=== PATIENT | female | born 1985 | race Caucasian/White ===

== ENCOUNTER 2017-12-04 10:21 | Emergency (ER) | payer OTHER ==
[~2017-12-04] VITALS: Ht 162.6 cm; Wt 115.7 kg
[2017-12-04 10:21] VITALS: BP 124/66
[2017-12-04] MEDS ORDERED: KETOROLAC 60 MG/2 ML VIAL IM ONE (10:35)
[2017-12-04 10:56] VITALS: BP 124/66
== END 2017-12-04 10:56 | disposition home or self-care (01) ==
LOC: MED 10:21
DX: R51 Headache (principal)
CPT/HCPCS: 96372; 99283; J1885

== ENCOUNTER 2018-01-22 22:02 | Emergency (ER) | payer OTHER ==
[~2018-01-22] VITALS: Ht 162.6 cm; Wt 113.4 kg
[2018-01-22 22:17] VITALS: BP 124/71
[2018-01-23 00:15] VITALS: BP 118/74
== END 2018-01-23 00:15 | disposition home or self-care (01) ==
LOC: MED 22:02
DX: R51 Headache (principal); R42 Dizziness and giddiness
CPT/HCPCS: 81002; 81025; 99282

== ENCOUNTER 2018-02-04 22:45 | Emergency (ER) | payer OTHER ==
[~2018-02-04] VITALS: Ht 162.6 cm; Wt 113.4 kg
[2018-02-04 23:00] VITALS: BP 123/70
--- NOTE | 2018-02-04 23:04 | NUR ---
PT AMBULATED TO ROOM 12 WITH VSS.
--- NOTE | 2018-02-04 23:10 | NUR ---
PATIENT PRESENTS TO ED WITH HEADACHE AND LEFT NECK PAIN X1 DAY. PATIENT STATES PAIN LEVEL 4/10 AT THIS TIME. PATIENT STATES DULL SENSATION FOR PAIN. PATIENT STATES PRESSURE BEHIND HER LEFT EYE BUT DENIES BLURRED VISION OR LOSS OF VISION AT THIS TIME. PATIENT IS A&OX4, PERRLA. ER MD MADE AWARE OF PATIENT STATUS WILL CONTINUE TO MONITOR.
--- NOTE | 2018-02-04 23:47 | NUR ---
Patient discharged with v/s stable. Written and verbal after care instructions given and explained. Patient alert, oriented and verbalized understanding of instructions. Ambulatory with steady gait. All questions addressed prior to discharge. ID band removed. Patient advised to follow up with PMD. Rx of FLEXERIL, IBUPROFEN given. Patient educated on indication of medication including possible reaction and side effects. Opportunity to ask questions provided and answered.
[2018-02-04 23:49] VITALS: BP 123/70
== END 2018-02-04 23:49 | disposition home or self-care (01) ==
LOC: MED 22:45
DX: G44.209 Tension-type headache, unspecified, not intractable (principal); M54.2 Cervicalgia
CPT/HCPCS: 99283

== ENCOUNTER 2018-02-15 04:02 | Emergency (ER) | payer OTHER ==
[~2018-02-15] VITALS: Ht 162.6 cm; Wt 114.0 kg
[2018-02-15 04:02] VITALS: BP 111/71
--- NOTE | 2018-02-15 04:08 | NUR ---
PATIENT AMBULATED TO ER BED 4.
--- NOTE | 2018-02-15 04:17 | NUR ---
32/F CAME IN ED, C/O HEALED PUNCTURE WOUND ON DISTAL OF INNER FOREARM, X24 HRS. 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 HEALED PUNCTURE WOUND NOTED WITH APPROXIMATELY 1 IN X 1 IN BRUISING AND SWELLING. SKIN INTACT. PT REPORTS 6/10 PAIN AT THIS TIME. PT REPORTS TAKING IBUPROFEN WITH LITTLE RELIEF, LAST DOSE X6 HRS AGO. PT DENIES MED HX, RX. NKA. ER MADE AWARE
[2018-02-15] MEDS ORDERED: BACITRACIN OINT 500 UNITS/GM PKT TP ONE (04:45)
--- NOTE | 2018-02-15 04:50 | NUR ---
ER MD AT BEDSIDE TO PERFORM US
[2018-02-15 05:13] VITALS: BP 110/70
== END 2018-02-15 05:13 | disposition home or self-care (01) ==
LOC: MED 04:02
DX: S51.831A Puncture wound without foreign body of right forearm, initial encounter (principal); X58.XXXA Exposure to other specified factors, initial encounter; Y93.89 Activity, other specified; Y92.89 Other specified places as the place of occurrence of the external cause; Y99.8 Other external cause status
CPT/HCPCS: 90471; 90715; 99284

== ENCOUNTER 2018-08-01 11:58 | Emergency (ER) | payer OTHER ==
[~2018-08-01] VITALS: Ht 165.1 cm; Wt 123.6 kg
[2018-08-01 12:21] VITALS: BP 109/63
--- NOTE | 2018-08-01 12:29 | NUR ---
PT AMBULATES TO BED 2
--- NOTE | 2018-08-01 12:34 | NUR ---
pt ambulates to restroom at this time to provide urine sample.
--- NOTE | 2018-08-01 12:36 | NUR ---
32 yo f bib self w/ c/o intermittent headaches. 2x this week, 3x last week. tylenol improves the pain, which is 4/10 at this time. last dose 11am today. reports nausea, denies vomiting. denies injury. aaox4, gcs 15. perrla. reports drinking plenty of fluids.
[2018-08-01] MEDS ORDERED: KETOROLAC 60 MG/2 ML VIAL IM ONE (12:40)
--- NOTE | 2018-08-01 12:57 | NUR ---
PATIENT BACK FROM CT SCAN.
[2018-08-01 14:09] VITALS: BP 109/63
--- NOTE | 2018-08-01 14:09 | NUR ---
Patient discharged with v/s stable. Written and verbal after care instructions given and explained. Patient alert, oriented and verbalized understanding of instructions. Ambulatory with steady gait. All questions addressed prior to discharge. ID band removed. Patient advised to follow up with PMD. Rx of TRAMADOL, MOTRIN, ZOFRAN given. Patient educated on indication of medication including possible reaction and side effects. Opportunity to ask questions provided and answered.
== END 2018-08-01 14:09 | disposition home or self-care (01) ==
LOC: MED 11:58
DX: R51 Headache (principal); H53.149 Visual discomfort, unspecified; R11.0 Nausea
CPT/HCPCS: 70450; 81025; 96372; 99284; J1885

== ENCOUNTER 2018-09-14 23:38 | Emergency (ER) | payer OTHER ==
[~2018-09-14] VITALS: Ht 162.6 cm; Wt 122.5 kg
[2018-09-14 23:51] VITALS: BP 109/76
--- NOTE | 2018-09-14 23:51 | NUR ---
TO BED# 11 AMBULATORY, REPORT GIVEN TO ORLANDO CISNEROS
--- NOTE | 2018-09-15 00:10 | NUR ---
32/F PRESENTS TO ED, C/O HEADACHE X1 DAY. REPORTS NAUSEA, DENIES VOMITING. DENIES LIGHT/SOUND SENSITIVITY. AOX4, GCS 15, RR EVEN AND UNLABORED. HX MIGRAINE RX TRAMADOL AND ZOFRAN WITH LITTLE RELIEF
[2018-09-15] MEDS ORDERED: KETOROLAC 60 MG/2 ML VIAL IM ONE (01:00)
--- NOTE | 2018-09-15 01:25 | NUR ---
PT LAYING IN BED, RR EVEN AND UNLABORED. VSS, REPORTS IMPROVEMENT IN HEADACHE, 4/10 AT THIS TIME, DENIES NAUSEA. ALL NEEDS MET.
[2018-09-15 01:31] VITALS: BP 106/70
--- NOTE | 2018-09-15 01:31 | NUR ---
Patient discharged with v/s stable. Written and verbal after care instructions given and explained. Patient alert, oriented and verbalized understanding of instructions. Ambulatory with steady gait. All questions addressed prior to discharge. ID band removed. Patient advised to follow up with PMD. Rx of FIORICET given. Patient educated on indication of medication including possible reaction and side effects. Opportunity to ask questions provided and answered.
== END 2018-09-15 01:31 | disposition home or self-care (01) ==
LOC: MED 23:38
DX: G43.909 Migraine, unspecified, not intractable, without status migrainosus (principal); Z98.890 Other specified postprocedural states
CPT/HCPCS: 81025; 96372; 99283; J1885

== ENCOUNTER 2018-10-11 07:10 | Emergency (ER) | payer OTHER ==
[~2018-10-11] VITALS: Ht 162.6 cm; Wt 122.5 kg
[2018-10-11 07:25] VITALS: BP 115/75
--- NOTE | 2018-10-11 07:46 | NUR ---
PT BIB SELF C/O HEADACHE X1 DAY. PT REPORTS CONSTANT NON-RADIATING PRESSURE PAIN IN FRONT OF HEAD AT 6/10. PT TREATED WITH TRAMADOL WITH NO RELIEF. PT AAOX4, COOPERATIVE, SPEECH CLEAR, FACIAL SYMMETRY INTACT, PERRLA, BUE STRONG/EQUAL, AND GAIT STEADY. PT REPORTS NAUSEA. DENIES VOMITING, FEVER, OR DIARRHEA. VSS. ER MD TO SEE PT. MEDHX:DENEIS RX:TYLENOL, TRAMADOL
[2018-10-11] MEDS ORDERED: KETOROLAC 60 MG/2 ML VIAL IM ONE (08:10)
[2018-10-11] MEDS ORDERED: METOCLOPRAMIDE 10 MG/2 ML INJ VIAL IM ONE (08:10)
[2018-10-11 08:40] LABS: BARBITURATE, URINE POS. ng/ml (NEG <=200); BENZODIAZEPINE, URINE NEG. ng/mL (NEG <=200); CANNABINOID, URINE NEG. ng/mL (NEG <=50); COCAINE, URINE NEG. ng/mL (NEG <=300); OPIATE, URINE NEG. ng/mL (NEG <=2000); PHENCYCLIDINE SCREEN,URINE NEG. ng/mL (NEG <=25)
[2018-10-11 09:10] VITALS: BP 115/75
== END 2018-10-11 09:10 | disposition home or self-care (01) ==
LOC: MED 07:10
DX: G43.909 Migraine, unspecified, not intractable, without status migrainosus (principal); E66.01 Morbid (severe) obesity due to excess calories; Z68.42 Body mass index [BMI] 45.0-49.9, adult
CPT/HCPCS: 80305; 81002; 81025; 96372; 99283; J1885; J2765

== ENCOUNTER 2018-12-09 18:38 | Emergency (ER) | payer OTHER ==
[~2018-12-09] VITALS: Ht 162.6 cm; Wt 124.7 kg
[2018-12-09 18:54] VITALS: BP 121/60
[2018-12-09 19:07] VITALS: BP 123/82
--- NOTE | 2018-12-09 19:07 | NUR ---
33 Y/O F PRESENTED TO ED WITH C/O MIGRAINE X1 DAY. +NAUSEA/VOMITTING. TEMPORAL HEADACHE. 12/31 PIAN, POUNDING. DENIES VISION CHANGES OR LIGTH SENSITIVITY. AAOX4. ERMD NOTIFIED. WILL CONTINUE TO MONITOR.
[2018-12-09] MEDS ORDERED: NACL 0.9% 1,000 ML IV ONE (19:16)
[2018-12-09] MEDS ORDERED: METOCLOPRAMIDE 10 MG/2 ML INJ VIAL IVP ONE (19:20)
[2018-12-09] MEDS ORDERED: diphenhydrAMINE 50 MG/ML VIAL IVP ONE (19:20)
--- NOTE | 2018-12-09 21:00 | NUR ---
Patient discharged with v/s stable. Written and verbal after care instructions given and explained. Patient alert, oriented and verbalized understanding of instructions. Ambulatory with steady gait. All questions addressed prior to discharge. ID band removed. Patient advised to follow up with PMD. Rx of Motrin and [place] given. Patient educated on indication of medication including possible reaction and side effects. Opportunity to ask questions provided and answered.
== END 2018-12-09 21:00 | disposition home or self-care (01) ==
LOC: MED 18:38
DX: R51 Headache (principal); R11.0 Nausea; Z98.890 Other specified postprocedural states
CPT/HCPCS: 81002; 81025; 96374; 96375; 99283; J1200; J2765; J7030

== ENCOUNTER 2018-12-24 19:21 | Emergency (ER) | payer OTHER ==
[~2018-12-24] VITALS: Ht 162.6 cm; Wt 124.7 kg
[2018-12-24 19:27] VITALS: BP 105/68
--- NOTE | 2018-12-24 19:27 | NUR ---
TO BED # 08 AMBULATORY
--- NOTE | 2018-12-24 19:35 | NUR ---
PT BIB SELF WITH C/O INCREASED HEART RATE. STATES TO HAVE SLIGHT PRESSURE AT THE MID REGION OF THE CHEST. DENEIS ANY SHARP PAIN. NO SOB, NAUSEA OR VOMITING. NO PMH, NKA. PUT THE PT ON BEDSIDE MONITOR. ER MD TO SEE THE PATIENT. WILL CONTINUE TO MONITOR PT.
[2018-12-24 20:58] VITALS: BP 105/68
--- NOTE | 2018-12-24 20:58 | NUR ---
Patient discharged with v/s stable. Written and verbal after care instructions given and explained. Patient alert, oriented and verbalized understanding of instructions. Ambulatory with steady gait. All questions addressed prior to discharge. ID band removed. Patient advised to follow up with PMD. Opportunity to ask questions provided and answered.
== END 2018-12-24 20:58 | disposition home or self-care (01) ==
LOC: MED 19:21
DX: F41.9 Anxiety disorder, unspecified (principal); Z98.890 Other specified postprocedural states
CPT/HCPCS: 93005; 99283

== ENCOUNTER 2019-01-07 09:37 | Emergency (ER) | payer OTHER ==
[~2019-01-07] VITALS: Ht 162.6 cm; Wt 125.7 kg
[2019-01-07 09:43] VITALS: BP 123/71
--- NOTE | 2019-01-07 09:48 | NUR ---
Patient ambulated to bed 12. RN evaluating patient at bedside.
--- NOTE | 2019-01-07 09:59 | NUR ---
33/F C/O NAUSEA, HEADACHE W/ SENSITIVITY TO LIGHT AND NOISE X 2 DAYS. MEDHX:MIGRANE. DENIES V/D; SKIN IS PINK/WARM/DRY; AAOX4 WITH EVEN AND STEADY GAIT; LUNGS CLEAR BL; HR EVEN AND REGULAR; PT DENIES ANY FEVER, CP, SOB, OR COUGH AT THIS TIME; PATIENT STATES PAIN OF 6/10 AT THIS TIME. PATIENT POSITIONED FOR COMFORT; HOB ELEVATED; BEDRAILS UP X1; BED DOWN. ER MD MADE AWARE OF PT STATUS.
[2019-01-07] MEDS ORDERED: LORazepam 1 MG TAB PO ONE (10:30)
[2019-01-07] MEDS ORDERED: METOCLOPRAMIDE 10 MG/2 ML INJ VIAL IM SCH (10:30)
[2019-01-07] MEDS ORDERED: KETOROLAC 60 MG/2 ML VIAL IM SCH (11:00)
[2019-01-07 11:25] LABS: BARBITURATE, URINE POS. ng/ml (NEG <=200); BENZODIAZEPINE, URINE NEG. ng/mL (NEG <=200); CANNABINOID, URINE NEG. ng/mL (NEG <=50); COCAINE, URINE NEG. ng/mL (NEG <=300); OPIATE, URINE NEG. ng/mL (NEG <=2000); PHENCYCLIDINE SCREEN,URINE NEG. ng/mL (NEG <=25)
[2019-01-07 11:30] LABS: APPEARANCE,URINE HAZY (CLEAR); BILIRUBIN,URINE NEGATIVE (NEGATIVE); BLOOD, URINE TRACE-I (NEGATIVE); COLOR,URINE YELLOW (YELLOW); LEUKOCYTE ESTERASE ,URINE 1+ (NEGATIVE); NITRITE, URINE NEGATIVE (NEGATIVE); UGLUCOSE NEGATIVE (NEGATIVE)
--- NOTE | 2019-01-07 11:55 | NUR ---
Patient returned from CT scan. RN re-evaluating patient at bedside.
[2019-01-07 12:19] LABS: RBC,URINE NONE SEEN /HPF (0-5); WBC,URINE 80-100 /HPF (0-5)
[2019-01-07 13:23] VITALS: BP 102/60
--- NOTE | 2019-01-07 13:23 | NUR ---
Patient discharged with v/s stable. Written and verbal after care instructions given and explained. Patient alert, oriented and verbalized understanding of instructions. Carried with steady gait. All questions addressed prior to discharge. ID band removed. Patient advised to follow up with PMD. Rx of Reglan given. Patient educated on indication of medication including possible reaction and side effects. Opportunity to ask questions provided and answered.
== END 2019-01-07 13:23 | disposition home or self-care (01) ==
LOC: MED 09:37
DX: G43.909 Migraine, unspecified, not intractable, without status migrainosus (principal); D32.9 Benign neoplasm of meninges, unspecified; M62.838 Other muscle spasm
CPT/HCPCS: 70450; 72125; 80305; 81001; 81025; 87086; 87186; 96372; 99284; J1885; J2765

== ENCOUNTER 2019-01-18 02:18 | Emergency (ER) | payer OTHER ==
[~2019-01-18] VITALS: Ht 162.6 cm; Wt 125.6 kg
[2019-01-18 02:30] VITALS: BP 126/89
--- NOTE | 2019-01-18 02:30 | NUR ---
TO BED # 06 AMBULATORY
--- NOTE | 2019-01-18 02:32 | NUR ---
33 YO FEMALE COMES TO ED FOR C/O TORRES X1 DAY. PT RECENTLY WAS @ [facility] FOR TORRES AND WAS DX WITH MENINGIOMA AND RX OF BUTALBITAL/TYLENOL/CAFFEINE AND REGLAN. PT STATES SHE FOLLOWED UP WITH PCP AND SENT TO NEUROLOGY SPECIALIST, APPT SETUP IN . PT STATES TORRES "8/10 PAIN TO R SIDE OF HEAD BEHIND EYE" DENIES NUMBNESS TINGLING. DENIES CP/SOB. DENIES N/VD. GURNEY LOCKED IN LOWEST POSITION. ERMD @ BEDSIDE HX: HEADACHES RX: REGLAN, BUTALBITAL/TYLENOL/CAFFEINE ALLERGIES: NONE LMP: 09/08 PT STATES SHE TAKES CONTROL THAT AFFECTS MENSTRUAL CYCLE
--- NOTE | 2019-01-18 02:36 | NUR ---
Dr. Phoenix examining patient.
[2019-01-18] MEDS ORDERED: SUMAtriptan 6 MG/0.5 ML VIAL SUBQ ONE (02:40)
[2019-01-18] MEDS ORDERED: KETOROLAC 60 MG/2 ML VIAL IM ONE (02:40)
--- NOTE | 2019-01-18 03:23 | NUR ---
PT HAS EYES CLOSED; AROUSABLE, REASSESSED PT; PAIN 0/10. ERMD MADE AWARE.
[2019-01-18 03:26] VITALS: BP 109/79
== END 2019-01-18 03:32 | disposition home or self-care (01) ==
LOC: MED 02:18
DX: R51 Headache (principal)
CPT/HCPCS: 96372; 99283; J1885; J3030

== ENCOUNTER 2019-01-21 18:43 | Emergency (ER) | payer OTHER ==
[~2019-01-21] VITALS: Ht 162.6 cm; Wt 122.9 kg
[2019-01-21 18:52] VITALS: BP 111/79
--- NOTE | 2019-01-21 18:54 | NUR ---
TO ED LOBBY WITH VSS. AWATING BED IN DEPT.
[2019-01-21] MEDS ORDERED: diphenhydrAMINE 50 MG/ML VIAL IVP ONE (19:25)
[2019-01-21] MEDS ORDERED: MORPHINE SULFATE 4 MG/ML SYR IVP ONE (19:25)
--- NOTE | 2019-01-21 19:25 | NUR ---
C/O HEADACHE 10/10 AND THROBBING X 1 DAY. PT REPORTS NAUSEA WELL, NO VOMITING. PT STATES SHE HAS A HISTORY OF MIGRAINES. PT DENIES VISION CHANGES, BUE/BLE STRENGTH EQUAL, PT SPEAKING FULL/CLEAR SENTENCES, AND ANSWERING QUESTIONS APPROPRIATELY.
--- NOTE | 2019-01-21 19:29 | NUR ---
DR GUSTAFSON AT BEDSIDE
--- NOTE | 2019-01-21 19:32 | NUR ---
PT REFUSED MORPHINE & BENADRYL. sHE WOULD LIKE TORADOL AND IMITREX INSTEAD. DR. GUSTAFSON AWARE
[2019-01-21] MEDS ORDERED: KETOROLAC 30 MG/ML VIAL IM ONE (19:35)
[2019-01-21] MEDS ORDERED: SUMAtriptan 25 MG TAB PO ONE (19:35)
[2019-01-21 20:23] VITALS: BP 118/81
--- NOTE | 2019-01-21 20:23 | NUR ---
Patient discharged with v/s stable. Written and verbal after care instructions given and explained. Patient alert, oriented and verbalized understanding of instructions. Ambulatory with steady gait. All questions addressed prior to discharge. ID band removed. Patient advised to follow up with PMD. Rx of IMITREX given. Patient educated on indication of medication including possible reaction and side effects. Opportunity to ask questions provided and answered.
== END 2019-01-21 20:23 | disposition home or self-care (01) ==
LOC: MED 18:43
DX: G43.909 Migraine, unspecified, not intractable, without status migrainosus (principal)
CPT/HCPCS: 96372; 99283; J1885; J1200; J2270

== ENCOUNTER 2019-02-06 19:06 | Emergency (ER) | payer OTHER ==
[~2019-02-06] VITALS: Ht 162.6 cm; Wt 123.4 kg
[2019-02-06 19:14] VITALS: BP 114/70
[2019-02-06] MEDS ORDERED: KETOROLAC 60 MG/2 ML VIAL IM ONE (20:45)
[2019-02-06 21:11] VITALS: BP 111/76
== END 2019-02-06 21:11 | disposition home or self-care (01) ==
LOC: MED 19:06
DX: R51 Headache (principal)
CPT/HCPCS: 81025; 96372; 99283; J1885

== ENCOUNTER 2019-04-07 12:24 | Emergency (ER) | payer OTHER ==
[~2019-04-07] VITALS: Ht 167.6 cm; Wt 123.4 kg
[2019-04-07 12:29] VITALS: BP 113/71
--- NOTE | 2019-04-07 12:33 | NUR ---
PT TO BED 4 WITH STEADY GAIT
--- NOTE | 2019-04-07 12:40 | NUR ---
C/O HEADACHE 01/31 X YESTERDAY. SAW NEUROLOGIST FOR MRI, PENDING RESULTS. REQUESTING PAIN MEDICATIONS. PMH- MIGRAINES. RX- FIORICET. PATIENT POSITIONED FOR COMFORT; HOB ELEVATED; BEDRAILS UP X1; BED DOWN. ER MD MADE AWARE OF PT STATUS.
--- NOTE | 2019-04-07 12:45 | NUR ---
Patient being evaluated by DR RADFORD at bedside.
[2019-04-07] MEDS ORDERED: KETOROLAC 60 MG/2 ML VIAL IM ONE (12:50)
[2019-04-07] MEDS ORDERED: PROCHLORPERAZINE 10 MG/2 ML VIAL IM ONE (12:50)
[2019-04-07 14:31] VITALS: BP 118/68
--- NOTE | 2019-04-07 14:31 | NUR ---
Patient discharged with v/s stable. Written and verbal after care instructions given and explained. Patient alert, oriented and verbalized understanding of instructions. Ambulatory with steady gait. All questions addressed prior to discharge. ID band removed. Patient advised to follow up with PMD. Rx of COMPAZINE given. Patient educated on indication of medication including possible reaction and side effects. Opportunity to ask questions provided and answered.
== END 2019-04-07 14:31 | disposition home or self-care (01) ==
LOC: MED 12:24
DX: G43.909 Migraine, unspecified, not intractable, without status migrainosus (principal); D32.9 Benign neoplasm of meninges, unspecified
CPT/HCPCS: 96372; 99283; J0780; J1885

== ENCOUNTER 2019-04-16 19:07 | Emergency (ER) | payer OTHER ==
[~2019-04-16] VITALS: Ht 162.6 cm; Wt 123.4 kg
[2019-04-16 19:15] VITALS: BP 134/61
--- NOTE | 2019-04-16 19:18 | NUR ---
TO LOBBY AMBULATORY
--- NOTE | 2019-04-16 20:52 | NUR ---
33 Y/O F PRESENTS TO ED WITH C/O WEAKNESS X2 DAYS. AAOX4. +LIGHTHEADEDNESS. PT DENIES PAIN, SICK CONTACTS, VISUAL CHANGES, N/V/D, AND FEVER/CHILLS. WILL CONTINUE TO MONITOR
[2019-04-16 21:29] LABS: BASOPHILS # (AUTO) 0.1 K/uL (0.00-0.22); BASOPHILS % (AUTO) 0.7 % (0.0-2.0); EOSINOPHILS # (AUTO) 0.2 K/uL (0-0.4); HEMATOCRIT 41.7 % (36-48); HEMOGLOBIN 13.9 g/dL (12.0-16.0); LYMPHOCYTES # (AUTO) 3.1 K/uL (2.5-16.5); LYMPHOCYTES % (AUTO) 39.6 % (20.5-51.1); MEAN CORPUSCULAR HEMOGLOBIN 29 pg (27-31); MEAN CORPUSCULAR HGB CONC 33 g/dL (33-37); MEAN CORPUSCULAR VOLUME 87.4 fL (80-94); MONOCYTES # (AUTO) 0.5 K/uL (0.8-1.0); MONOCYTES % (AUTO) 6.2 % (1.7-9.3); NEUTROPHILS % (AUTO) 51.5 % (42.2-75.2); PLATELET COUNT (AUTO) 203 K/uL (140-450); RED BLOOD CELL COUNT(AUTO) 4.78 MIL/uL (4.20-5.40); RED CELL DISTRIBUTION WIDTH 14.2 % (11.6-13.7); WHITE BLOOD COUNT (AUTO) 7.8 K/uL (4.8-10.8)
[2019-04-16 21:45] LABS: ANION GAP 10.6 (8-16); CARBON DIOXIDE 26.4 mmol/L (21-32); CREATININE 0.6 mg/dL (0.6-1.3)
[2019-04-16 21:50] LABS: ALBUMIN 3.5 g/dL (3.4-5.0); TOTAL BILIRUBIN 0.2 mg/dL (0.0-1.0)
--- NOTE | 2019-04-16 22:00 | NUR ---
PA SAVAGE WITH PT
[2019-04-16 22:10] VITALS: BP 122/71
--- NOTE | 2019-04-16 22:10 | NUR ---
Patient discharged with v/s stable. Written and verbal after care instructions given and explained to parent/guardian. Parent/Guardian verbalized understanding. Ambulatory with steady gait. All questions addressed prior to discharge. Advised to follow up with PMD.
== END 2019-04-16 22:10 | disposition home or self-care (01) ==
LOC: MED 19:07
DX: R53.83 Other fatigue (principal); F41.9 Anxiety disorder, unspecified; Z98.890 Other specified postprocedural states
CPT/HCPCS: 36415; 80053; 81002; 81025; 85025; 93005; 99284

== ENCOUNTER 2019-04-23 12:42 | Emergency (ER) | payer OTHER ==
[~2019-04-23] VITALS: Ht 162.6 cm; Wt 122.0 kg
[2019-04-23 12:50] VITALS: BP 123/83
--- NOTE | 2019-04-23 12:55 | NUR ---
PT TO ER LOBBY. PT ALERT AND AWAKE. VSS
--- NOTE | 2019-04-23 13:14 | NUR ---
PT GIVEN HOSPITAL PHONE TO CALL FAMILY MEMBER
--- NOTE | 2019-04-23 13:40 | NUR ---
PT TAKEN TO BED 12.
--- NOTE | 2019-04-23 13:48 | NUR ---
33/F C/O CONTINUOUS HEADACHE X YESTERDAY. DENIES INJURY. FOLLOW UP WITH NEUROLOGIST ON April, BUT STATES PAIN IS UNBEARABLE. MRI BRAIN WAS DONE OUTPATIENT BUT NO RESULTS YET CALLED TO PT. PAIN IS AT RT TEMPORAL REGION NOW BUT IT TRAVELS TO DIFFERENT AREAS. DENIES DIZZINESS, VISION CHANGES, VOMITING. STATES MILD NAUSEA AND WEAKNESS. HAND CRUDE OIL DRIVER STRENGTH STRONG, EQUAL. FULL CLEAR SPEECH. PERRLA. HX- HEADACHES, LT EYE [place] RX-FIORICET
--- NOTE | 2019-04-23 13:52 | NUR ---
STATES STRESS A TRIGGER OF HEADACHE. STATES MULTIPLE STRESSFUL THINGS HAPPENING YESTERDAY. GCS 15
[2019-04-23] MEDS ORDERED: KETOROLAC 30 MG/ML VIAL IM ONE (14:15)
--- NOTE | 2019-04-23 15:04 | NUR ---
Patient discharged with v/s stable. Written and verbal after care instructions given and explained. Patient verbalized understanding. Ambulatory with steady gait. All questions addressed prior to discharge. Advised to follow up with PMD.
[2019-04-23 15:06] VITALS: BP 110/68
== END 2019-04-23 15:04 | disposition home or self-care (01) ==
LOC: MED 12:42
DX: G43.909 Migraine, unspecified, not intractable, without status migrainosus (principal)
CPT/HCPCS: 96372; 99283; J1885

== ENCOUNTER 2019-05-25 13:05 | Emergency (ER) | payer OTHER ==
[~2019-05-25] VITALS: Ht 162.6 cm; Wt 123.4 kg
[2019-05-25 13:08] VITALS: BP 107/68
--- NOTE | 2019-05-25 13:14 | NUR ---
Patient ambulated to bed 1. RN evaluating patient at bedside.
--- NOTE | 2019-05-25 13:14 | NUR ---
Renea chu in [facility] - 05/25/19 at 1316 by MMTHEM Patient ambulated to bed 2. RN evaluating patient at bedside.
--- NOTE | 2019-05-25 13:18 | NUR ---
Recieved patient from triage with c/o a migraine headache, that started saturday night. Patient takes fioricet however, it did not work. Patient has an aura before each migraine- her eye itches. Patient teaching on medication administration efectiveness and taking medication for breakthrough pain. room lights turned of, patient states to be comfortable. Pending ER MD blas.
--- NOTE | 2019-05-25 13:30 | NUR ---
Seen by PAULINO Hope
[2019-05-25] MEDS ORDERED: PROCHLORPERAZINE 10 MG/2 ML VIAL IM ONE (13:40)
[2019-05-25] MEDS ORDERED: KETOROLAC 60 MG/2 ML VIAL IM ONE (13:40)
--- NOTE | 2019-05-25 14:30 | NUR ---
Pt asleep, s/p toradol and compazine admin for Migraine h/a. Comfort measures - warm blanket given, pt states "I feel better."
[2019-05-25 15:45] VITALS: BP 119/72
--- NOTE | 2019-05-25 15:45 | NUR ---
Patient discharged with v/s stable. Written and verbal after care instructions and Rx for compazine and naproxin 500mg given and explained. Patient verbalized understanding. Ambulatory with steady gait. pain level 0/10. All questions addressed prior to discharge. Advised to follow up with PMD.
== END 2019-05-25 15:45 | disposition home or self-care (01) ==
LOC: MED 13:05
DX: G43.909 Migraine, unspecified, not intractable, without status migrainosus (principal); Z98.890 Other specified postprocedural states
CPT/HCPCS: 96372; 99283; J0780; J1885

== ENCOUNTER 2019-06-12 09:35 | Emergency (ER) | payer OTHER ==
[~2019-06-12] VITALS: Ht 167.6 cm; Wt 123.4 kg
[2019-06-12 09:41] VITALS: BP 107/67
--- NOTE | 2019-06-12 09:46 | NUR ---
PT AMBULATED TO BED 08.
--- NOTE | 2019-06-12 09:49 | NUR ---
PT BIB SELF C/O PURPLE TENDER LUMP IN RT BREAST X LAST NIGHT. PT REPORTS 7/10 SORE PAIN ONLY W/ PALPATION. DENIES ANY NIPPLE DISCHARGE OR DISCHARGE FROM LUMP. DENIES N/V OR FEVER. VSS. ER MD TO SEE PT. MEDHX:MIGRANE
--- NOTE | 2019-06-12 10:01 | NUR ---
DR FERNANDEZ AT BEDSIDE WITH U/S
[2019-06-12 10:14] VITALS: BP 107/67
== END 2019-06-12 10:14 | disposition home or self-care (01) ==
LOC: MED 09:35
DX: N61.1 Abscess of the breast and nipple (principal)
CPT/HCPCS: 99283

== ENCOUNTER 2020-03-18 19:18 | Emergency (ER) | payer OTHER ==
[~2020-03-18] VITALS: Ht 162.6 cm; Wt 127.0 kg
[2020-03-18 19:22] VITALS: BP 90/65
[2020-03-18 20:07] VITALS: BP 90/65
== END 2020-03-18 20:07 | disposition home or self-care (01) ==
LOC: MED 19:18
DX: L03.312 Cellulitis of back [any part except buttock and flank] (principal); Z98.890 Other specified postprocedural states
CPT/HCPCS: 99283

== ENCOUNTER 2020-04-13 19:44 | Emergency (ER) | payer OTHER ==
[~2020-04-13] VITALS: Ht 162.6 cm; Wt 126.6 kg
[2020-04-13 19:58] VITALS: BP 128/65
--- NOTE | 2020-04-13 20:07 | NUR ---
PT CURRENTLY IN TENT , NO ACUTE DISTRESS NOTED AT THIS TIME. VSS. ERMD MADE AWRE OF PT STATUS.
--- NOTE | 2020-04-13 20:42 | NUR ---
CHARANJIT AND INFLUENZA SWABS COLLECTED AND WALKED TO LAB.
--- NOTE | 2020-04-13 20:43 | NUR ---
PT CURRENTLY IN TENT . VSS. NO ACUTED DISTRESS NOTED AT THIS TIME.
--- NOTE | 2020-04-13 21:00 | NUR ---
Dr. Bennett examining patient.
[2020-04-13 21:52] VITALS: BP 125/60
== END 2020-04-13 21:52 | disposition home or self-care (01) ==
LOC: MED 19:44
DX: U07.1 COVID-19 (principal); R53.1 Weakness; M79.10 Myalgia, unspecified site; R51.9 Headache, unspecified
CPT/HCPCS: 87804; 99283

== ENCOUNTER 2020-07-10 20:15 | Emergency (ER) | payer OTHER ==
[~2020-07-10] VITALS: Ht 162.6 cm; Wt 124.3 kg
[2020-07-10 20:17] VITALS: BP 121/78
--- NOTE | 2020-07-10 20:20 | NUR ---
TO LOBBY A/W BED AMBULATORY
--- NOTE | 2020-07-10 20:23 | NUR ---
EKG PERFORMED IN TRIAGE ROOM. EKG READS SINUS RHYTHM @ 96
--- NOTE | 2020-07-10 20:25 | NUR ---
AMBULATED TO ER BED1
--- NOTE | 2020-07-10 20:45 | NUR ---
EXAM RESULTS RETURNED, REVIEWED. READY FOR DISCHARGE.
--- NOTE | 2020-07-10 20:45 | NUR ---
RECEIVED IN BED 1 WITH C/O CHEST PRESSURE SINCE THIS AM. "I'VE BEEN UNDER STRESS AND I THINK IT'S ANXIETY" SKIN IS WARM AND DRY, RESPIRATIONS ARE REGULAR AND UNLABORED.
[2020-07-10 21:34] LABS: BASOPHILS # (AUTO) 0.1 K/uL (0.00-0.22); BASOPHILS % (AUTO) 0.8 % (0.0-2.0); EOSINOPHILS # (AUTO) 0.1 K/uL (0-0.4); EOSINOPHILS % (AUTO) 1.4 % (0.0-4.0); HEMOGLOBIN 14.1 g/dL (12.0-16.0); LYMPHOCYTES # (AUTO) 2.8 K/uL (2.5-16.5); MEAN CORPUSCULAR HEMOGLOBIN 29 pg (27-31); MEAN CORPUSCULAR HGB CONC 34 g/dL (33-37); MEAN CORPUSCULAR VOLUME 87.1 fL (80-94); MONOCYTES # (AUTO) 0.5 K/uL (0.8-1.0); MONOCYTES % (AUTO) 5.4 % (1.7-9.3); NEUTROPHILS # (AUTO) 5.3 K/uL (1.8-7.7); NEUTROPHILS % (AUTO) 60.4 % (42.2-75.2); PLATELET COUNT (AUTO) 226 K/uL (140-450); RED BLOOD CELL COUNT(AUTO) 4.82 MIL/uL (4.20-5.40); RED CELL DISTRIBUTION WIDTH 13.9 % (11.6-13.7); WHITE BLOOD COUNT (AUTO) 8.8 K/uL (4.8-10.8)
[2020-07-10 21:49] LABS: ALBUMIN 3.6 g/dL (3.4-5.0); CREATININE 0.9 mg/dL (0.6-1.3); POTASSIUM 3.5 mmol/L (3.5-5.1); TOTAL BILIRUBIN 0.3 mg/dL (0.0-1.0)
[2020-07-10 21:54] LABS: ANION GAP 13.2 (8-16); CARBON DIOXIDE 25.3 mmol/L (21-32)
[2020-07-10 22:20] VITALS: BP 126/74
== END 2020-07-10 22:20 | disposition home or self-care (01) ==
LOC: MED 20:15
DX: R07.9 Chest pain, unspecified (principal); R41.1 Anterograde amnesia; G43.909 Migraine, unspecified, not intractable, without status migrainosus
CPT/HCPCS: 36415; 80053; 84484; 85025; 93005; 99284

== ENCOUNTER 2020-11-01 22:30 | Emergency (ER) | payer OTHER ==
[~2020-11-01] VITALS: Ht 162.6 cm; Wt 123.4 kg
[2020-11-01 22:36] VITALS: BP 135/90
--- NOTE | 2020-11-01 22:36 | NUR ---
TO BED AMBULATORY
--- NOTE | 2020-11-01 22:40 | NUR ---
PATIENT 34 Y/O FEMALE BIB SELF FOR C/O 5/10 STERNAL CP RADIATING TO L ARM AND NECK X 12 HOURS. PATIENT STATES PAIN WAS PROVOKED AFTER CLEANING AROUND THE HOUSE. PATIENT STATES, " I DON'T KNOW IF IT'S MY ANXIETY BUT IT HASN'T GONE AWAY AND I JUST WANTED TO GET IT CHECKED OUT." PATIENT STATES THIS CP IS "DIFFERENT" THAN PREVIOUS TIMES. PATIENT RESPIATIONS ARE EVEN AND UNLABORED. CLEAR LUNG SOUNDS A/P BILAT. S1S2 PRESENT. RADIAL PULSES EQUAL AND SRTONG BUE. CAP REFILL <3. SKIN IS WARM AND DRY TO TOUCH. PATIENT REMAINS ON CARDIAC MONTIOR. MEDHX: COVID + IN MARCH 2020 SURGERIES: TUBAL LIGATION X 1 MONTH AGO DIAMOND
--- NOTE | 2020-11-01 22:43 | NUR ---
EKG BEING PERFORMED BY EMT AT BEDSIDE.
--- NOTE | 2020-11-01 22:47 | NUR ---
X-Ray at bedside.
[2020-11-01 22:57] LABS: BASOPHILS # (AUTO) 0.1 K/uL (0.00-0.22); BASOPHILS % (AUTO) 0.9 % (0.0-2.0); EOSINOPHILS # (AUTO) 0.2 K/uL (0-0.4); EOSINOPHILS % (AUTO) 1.7 % (0.0-4.0); HEMATOCRIT 42.3 % (36-48); LYMPHOCYTES # (AUTO) 2.9 K/uL (2.5-16.5); LYMPHOCYTES % (AUTO) 31.2 % (20.5-51.1); MEAN CORPUSCULAR HEMOGLOBIN 29 pg (27-31); MEAN CORPUSCULAR HGB CONC 33 g/dL (33-37); MEAN CORPUSCULAR VOLUME 87.5 fL (80-94); MONOCYTES # (AUTO) 0.4 K/uL (0.8-1.0); MONOCYTES % (AUTO) 4.9 % (1.7-9.3); NEUTROPHILS # (AUTO) 5.6 K/uL (1.8-7.7); NEUTROPHILS % (AUTO) 61.3 % (42.2-75.2); PLATELET COUNT (AUTO) 259 K/uL (140-450); RED BLOOD CELL COUNT(AUTO) 4.83 MIL/uL (4.20-5.40); RED CELL DISTRIBUTION WIDTH 13.9 % (11.6-13.7); WHITE BLOOD COUNT (AUTO) 9.1 K/uL (4.8-10.8)
[2020-11-01] MEDS: ASPIRIN 325 MG TAB PO ONE (23:02)
[2020-11-01 23:11] LABS: ALBUMIN 3.6 g/dL (3.4-5.0); ANION GAP 11.8 (8-16); CARBON DIOXIDE 28.2 mmol/L (21-32); CREATININE 0.7 mg/dL (0.6-1.3); TOTAL BILIRUBIN 0.4 mg/dL (0.0-1.0)
--- NOTE | 2020-11-01 23:22 | NUR ---
Patient appears to be resting comfortably in bed. Respirations even and unlabored. Patient denies any chest pain at this time. patient remains on hall monitor. Vital Signs within normal limits.
[2020-11-01 23:49] VITALS: BP 115/58
== END 2020-11-01 23:49 | disposition home or self-care (01) ==
LOC: MED 22:30
DX: R07.89 Other chest pain (principal)
CPT/HCPCS: 36415; 71045; 80053; 84484; 84702; 85025; 93005; 99285

== ENCOUNTER 2023-07-01 15:30 | Emergency (ER) | payer MEDICAID, OTHER ==
[~2023-07-01] VITALS: Ht 167.6 cm; Wt 81.6 kg
[2023-07-01 16:04] VITALS: BP 123/79; PULSE 77; RESP 18; TEMP 97; O2SAT 98
[2023-07-01 17:51] LABS: FLU A ANTIGEN negative (NEGATIVE); FLU B ANTIGEN NEGATIVE (NEGATIVE)
[2023-07-01] MEDS ORDERED: AZIT250T4 PO (18:27)
[2023-07-01] MEDS ORDERED: ALBU0.0912 IH (18:27)
[2023-07-01] MEDS ORDERED: PROM118S5 PO (18:27)
[2023-07-01 18:50] VITALS: BP 123/77; PULSE 77; RESP 18; TEMP 97; O2SAT 98
== END 2023-07-01 18:51 | disposition home or self-care (01) ==
LOC: MED 15:30
DX: J18.9 Pneumonia, unspecified organism (principal); Z20.822 Contact with and (suspected) exposure to COVID-19; Z79.899 Other long term (current) drug therapy
CPT/HCPCS: 71045; 99284

== ENCOUNTER 2024-02-21 17:07 | Emergency (ER) | payer MEDICAID, OTHER ==
[~2024-02-21] VITALS: Ht 162.6 cm; Wt 116.6 kg
[~2024-02-21 17:07] MED LIST: ALBU0.0912 IH; AZIT250T4 PO; PROM118S5 PO
[2024-02-21 17:28] VITALS: BP 108/52; PULSE 86; RESP 18; TEMP 98.2; O2SAT 97
--- NOTE | 2024-02-21 17:37 | NUR ---
to bed 6.
--- NOTE | 2024-02-21 17:57 | NUR ---
lab at bedside
--- NOTE | 2024-02-21 18:26 | NUR ---
38 y/o female bib self with c/o chest pain since today. Patient reports a heaviness to left arm with intermittent tingling. Patient states arm tingling has been an issue for "a couple of months." Patient has non-radiating chest pain. Denies any SOB, fevers or chills. Denies any nausea or vomiting. Denies taking any medication for s/s. Medical History:Denies NKDA
[2024-02-21 18:29] LABS: BASOPHILS # (AUTO) 0.1 K/uL (0.00-0.22); EOSINOPHILS # (AUTO) 0.2 K/uL (0-0.4); EOSINOPHILS % (AUTO) 2.6 % (0.0-4.0); HEMATOCRIT 42.2 % (36-48); LYMPHOCYTES # (AUTO) 2.6 K/uL (2.5-16.5); LYMPHOCYTES % (AUTO) 38.8 % (20.5-51.1); MEAN CORPUSCULAR HEMOGLOBIN 29 pg (27-31); MEAN CORPUSCULAR HGB CONC 33 g/dL (33-37); MEAN CORPUSCULAR VOLUME 87.5 fL (80-94); MONOCYTES # (AUTO) 0.4 K/uL (0.8-1.0); MONOCYTES % (AUTO) 6.2 % (1.7-9.3); NEUTROPHILS # (AUTO) 3.5 K/uL (1.8-7.7); NEUTROPHILS % (AUTO) 51.4 % (42.2-75.2); PLATELET COUNT (AUTO) 212 K/uL (140-450); RED BLOOD CELL COUNT(AUTO) 4.82 MIL/uL (4.20-5.40); RED CELL DISTRIBUTION WIDTH 14.1 % (11.6-13.7); WHITE BLOOD COUNT (AUTO) 6.7 K/uL (4.8-10.8)
[2024-02-21 18:38] LABS: ANION GAP 12.8 (8-16); CALCIUM 8.7 mg/dL (8.5-10.1); CREATININE 0.6 mg/dL (0.6-1.3); POTASSIUM 3.8 mmol/L (3.5-5.1)
--- NOTE | 2024-02-21 18:48 | NUR ---
X-ray at bedside.
[2024-02-21 19:25] VITALS: BP 108/70; PULSE 76; RESP 17; TEMP 98; O2SAT 98
== END 2024-02-21 19:25 | disposition home or self-care (01) ==
LOC: MED 17:07
DX: R07.9 Chest pain, unspecified (principal); M54.2 Cervicalgia; M25.512 Pain in left shoulder; Z79.899 Other long term (current) drug therapy
CPT/HCPCS: 36415; 71045; 80048; 84484; 85025; 99285; Q0092; 93005